=== PATIENT | female | born 1985 | race Caucasian/White ===

== ENCOUNTER 2019-10-14 07:46 | Day surgery (SDC) | payer OTHER ==
--- NOTE | 2019-10-13 11:29 | PCM.PREANE ---
Preanesthetic Assessment - Anesthesia/Transfusion/Family Hx Anesthesia History: No Prior Anesthesia Family History of Anesthesia Reaction: No Transfusion History: No Prior Transfusion(s) Intubation History: Unknown - Review of Systems Pulmonary: No Symptoms (Smoker: less than 1 ppd times 15 yrs) Other: Reports: Depression - Physical Assessment NPO Status Date: 10/13/19 Vital Signs: HR: Resp: BP: Sat: Temp: Height: 1.55 m ASA Class: 2 Mental Status: Alert & Oriented x3 - Lab Values: Laboratory Last Values WBC 8.90 K/mm3 (3.98-10.04) 10/08/19 10:12 RBC 4.97 M/mm3 (3.98-5.22) 10/08/19 10:12 Hgb 13.0 gm/dl (11.2-15.7) 10/08/19 10:12 Hct 40.4 % (34.1-44.9) 10/08/19 10:12 MCV 81.3 fl (79.4-94.8) D 10/08/19 10:12 MCH 26.2 pg (25.6-32.2) 10/08/19 10:12 MCHC 32.2 g/dl (32.2-35.5) 10/08/19 10:12 RDW Std Deviation 55.7 fL (36.4-46.3) H 10/08/19 10:12 Plt Count 228 K/mm3 (182-369) 10/08/19 10:12 MPV 11.7 fl (9.4-12.3) 10/08/19 10:12 Neut % (Auto) 62.4 % (34.0-71.1) 10/08/19 10:12 Lymph % (Auto) 24.6 % (19.3-51.7) 10/08/19 10:12 [place] % (Auto) 8.9 % (4.7-12.5) 10/08/19 10:12 Eos % (Auto) 3.5 (0.7-5.8) 10/08/19 10:12 Baso % (Auto) 0.4 % (0.1-1.2) 10/08/19 10:12 Neut # (Auto) 5.55 K/mm3 (1.56-6.13) 10/08/19 10:12 Lymph # (Auto) 2.19 K/mm3 (1.18-3.74) 10/08/19 10:12 [place] # (Auto) 0.79 K/mm3 (0.24-0.36) H 10/08/19 10:12 Eos # (Auto) 0.31 K/mm3 (0.04-0.36) 10/08/19 10:12 Baso # (Auto) 0.04 K/mm3 (0.01-0.08) 10/08/19 10:12 Creatinine 0.8 mg/dL (0.55-1.02) 10/08/19 10:12 Est Cr Clr Drug Dosing TNP 10/08/19 10:12 Estimated GFR (MDRD) > 60 mL/min (>60) 10/08/19 10:12 Urine Color Yellow (Yellow) 10/08/19 10:12 Urine Appearance Clear (Clear) 10/08/19 10:12 Urine pH 7.0 (5.0-8.0) 10/08/19 10:12 Ur Specific [place] 1.025 (1.005-1.030) 10/08/19 10:12 Urine Protein Negative (Negative) 10/08/19 10:12 Urine Glucose (UA) Negative (Negative) 10/08/19 10:12 Urine Ketones Negative (Negative) 10/08/19 10:12 Urine Occult Blood Negative (Negative) 10/08/19 10:12 Urine Nitrite Negative (Negative) 10/08/19 10:12 Urine Bilirubin Negative (Negative) 10/08/19 10:12 Urine Urobilinogen 0.2 (0.2-1.0) 10/08/19 10:12 Ur Leukocyte Esterase Negative (Negative) 10/08/19 10:12 Above labs reviewed and noted and within acceptable ranges to proceed with scheduled procedure. - Allergies Allergies/Adverse Reactions: Allergies Allergy/AdvReac Type Severity Reaction Status Date / Time No Known Allergies Allergy Verified 09/01/15 23:55 - Anesthesia Plan Pre-Op Medication Ordered: None - Acknowledgements Anesthesia Type Planned: General Anesthesia Pt an Appropriate Candidate for the Planned Anesthesia: Yes Alternatives and Risks of Anesthesia Discussed w Pt/Guardian: Yes Pt/Guardian Understands and Agrees with Anesthesia Plan: Yes PreAnesthesia Questionnaire - Past Health History Medical/Surgical History: Denies Medical/Surgical History - HOME MEDS Home Medications: Home Meds Ibuprofen [Motrin] 600 mg PO Q6H PRN #30 tab 09/02/15 [Rx] Methocarbamol [Robaxin-750] 750 mg PO BID #10 tablet 09/02/15 [Rx] - CURRENT (IN HOUSE) MEDS Current Meds: Current Medications Lactated Ringer's (Ringers, Lactated) 1,000 mls @ 125 mls/hr IV ASDIRECTED PRESTON Stop: 10/14/19 23:00 Lidocaine/Sodium Bicarbonate (Buffered Lidocaine 1% In Ns 8.4%) 0.25 ml IDERM ONETIME PRN PRN Reason: Prior to IV Start Stop: 10/14/19 23:00 Sodium Chloride (Saline Flush) 10 ml FLUSH ASDIRECTED PRN PRN Reason: Keep Vein Open Stop: 10/14/19 23:00
[~2019-10-14 07:46] MED LIST: Lactated Ringers 1,000 ML IV SCH; Lidocaine 1%/Sod Bicarbonate in NS 8.4% 1 ML Syringe IDERM PRN; Sodium Chloride 0.9% 10 ML Syringe FLUSH PRN
[2019-10-14] MEDS ORDERED: Ondansetron 4 MG/2 ML SDV ONE (08:40)
[2019-10-14] MEDS ORDERED: ceFAZolin 1 GM Vial ONE (08:40)
[2019-10-14] MEDS ORDERED: Lidocaine 1% 4 ML ONE (08:40)
[2019-10-14] MEDS ORDERED: Lactated Ringers 1,000 ML ONE (08:40)
[2019-10-14] MEDS ORDERED: Rocuronium 50 MG/5 ML Vial ONE (08:40)
[2019-10-14] MEDS ORDERED: Ketorolac 15 MG/ML SDV ONE (08:41)
[2019-10-14] MEDS ORDERED: Propofol 200 MG/20 ML SDV ONE (08:41)
[2019-10-14] MEDS ORDERED: Dexamethasone 4 MG/ML 5 ML MDV ONE (08:41)
[2019-10-14] MEDS ORDERED: fentaNYL 250 MCG/5 ML SDV ONE (08:41)
[2019-10-14] MEDS ORDERED: Midazolam 1 MG/ML 2 ML SDV ONE (08:41)
[2019-10-14] MEDS ORDERED: Bupivacaine 0.5% 10 ML SDV ONE (08:44)
--- NOTE | 2019-10-14 08:44 | PCM.PREANE ---
Preanesthetic Assessment - Procedure Proposed Procedure: LAVH With BS - Anesthesia/Transfusion/Family Hx Anesthesia History: No Prior Anesthesia Family History of Anesthesia Reaction: No Transfusion History: No Prior Transfusion(s) Intubation History: Unknown - Review of Systems General: No Symptoms Pulmonary: No Symptoms Cardiovascular: No Symptoms Gastrointestinal: Nausea Neurological: No Symptoms Other: Reports: Depression, Anxiety - Physical Assessment NPO Status Date: 10/13/19 NPO Status Time: 00:00 Height: 1.55 m Weight: 83.4 kg ASA Class: 2 Mental Status: Alert & Oriented x3 Airway Class: Mallampati = 1 Dentition: Reports: Normal Dentition Thyro-Mental Finger Breadths: 3 Mouth Opening Finger Breadths: 3 ROM/Head Extension: Full Lungs: Clear to Auscultation, Normal Respiratory Effort Cardiovascular: Regular Rate, Regular Rhythm - Lab Values: Laboratory Last Values WBC 8.90 K/mm3 (3.98-10.04) 10/08/19 10:12 RBC 4.97 M/mm3 (3.98-5.22) 10/08/19 10:12 Hgb 13.0 gm/dl (11.2-15.7) 10/08/19 10:12 Hct 40.4 % (34.1-44.9) 10/08/19 10:12 MCV 81.3 fl (79.4-94.8) D 10/08/19 10:12 MCH 26.2 pg (25.6-32.2) 10/08/19 10:12 MCHC 32.2 g/dl (32.2-35.5) 10/08/19 10:12 RDW Std Deviation 55.7 fL (36.4-46.3) H 10/08/19 10:12 Plt Count 228 K/mm3 (182-369) 10/08/19 10:12 MPV 11.7 fl (9.4-12.3) 10/08/19 10:12 Neut % (Auto) 62.4 % (34.0-71.1) 10/08/19 10:12 Lymph % (Auto) 24.6 % (19.3-51.7) 10/08/19 10:12 [place] % (Auto) 8.9 % (4.7-12.5) 10/08/19 10:12 Eos % (Auto) 3.5 (0.7-5.8) 10/08/19 10:12 Baso % (Auto) 0.4 % (0.1-1.2) 10/08/19 10:12 Neut # (Auto) 5.55 K/mm3 (1.56-6.13) 10/08/19 10:12 Lymph # (Auto) 2.19 K/mm3 (1.18-3.74) 10/08/19 10:12 [place] # (Auto) 0.79 K/mm3 (0.24-0.36) H 10/08/19 10:12 Eos # (Auto) 0.31 K/mm3 (0.04-0.36) 10/08/19 10:12 Baso # (Auto) 0.04 K/mm3 (0.01-0.08) 10/08/19 10:12 Creatinine 0.8 mg/dL (0.55-1.02) 10/08/19 10:12 Est Cr Clr Drug Dosing TNP 10/08/19 10:12 Estimated GFR (MDRD) > 60 mL/min (>60) 10/08/19 10:12 Urine Color Yellow (Yellow) 10/08/19 10:12 Urine Appearance Clear (Clear) 10/08/19 10:12 Urine pH 7.0 (5.0-8.0) 10/08/19 10:12 Ur Specific [place] 1.025 (1.005-1.030) 10/08/19 10:12 Urine Protein Negative (Negative) 10/08/19 10:12 Urine Glucose (UA) Negative (Negative) 10/08/19 10:12 Urine Ketones Negative (Negative) 10/08/19 10:12 Urine Occult Blood Negative (Negative) 10/08/19 10:12 Urine Nitrite Negative (Negative) 10/08/19 10:12 Urine Bilirubin Negative (Negative) 10/08/19 10:12 Urine Urobilinogen 0.2 (0.2-1.0) 10/08/19 10:12 Ur Leukocyte Esterase Negative (Negative) 10/08/19 10:12 Urine HCG, Qual Negative (NEGATIVE) 10/14/19 08:06 - Allergies Allergies/Adverse Reactions: Allergies Allergy/AdvReac Type Severity Reaction Status Date / Time No Known Allergies Allergy Verified 10/13/19 13:43 - Blood Blood Available: Yes Product(s) Available: PRBC PreAnesthesia Questionnaire - Past Health History Medical/Surgical History: Denies Medical/Surgical History HEENT History: Reports: None Cardiovascular History: Reports: None Respiratory History: Reports: None Gastrointestinal History: Reports: None Genitourinary History: Reports: None [employer] History: Reports: Musculoskeletal History: Reports: Back Pain, Chronic, Neck Pain, Chronic Neurological History: Reports: None Psychiatric History: Reports: Anxiety, Depression Endocrine/Metabolic History: Reports: None Hematologic History: Reports: Anemia Immunologic History: Reports: None Oncologic (Cancer) History: Reports: None Dermatologic History: Reports: None - Past Surgical History Head Surgeries/Procedures: Reports: None HEENT Surgical History: Reports: Eye Surgery Cardiovascular Surgical History: Reports: None Respiratory Surgical History: Reports: None GI Surgical History: Reports: None Female Surgical History: Reports: None Male Surgical History: Reports: None Endocrine Surgical History: Reports: None Neurological Surgical History: Reports: None Musculoskeletal Surgical History: Reports: None Oncologic Surgical History: Reports: None Dermatological Surgical History: Reports: None - SUBSTANCE USE Smoking Status *Q: Current Every Day Smoker Recreational Drug Use History: No - HOME MEDS Home Medications: Home Meds Iron,Carbonyl/Ascorbic Acid [Vitron-C Tablet] 1 tab PO DAILY 10/13/19 [History] - CURRENT (IN HOUSE) MEDS Current Meds: Current Medications Lactated Ringer's (Ringers, Lactated) 1,000 mls @ 125 mls/hr IV ASDIRECTED PRESTON Stop: 10/14/19 23:00 Lidocaine/Sodium Bicarbonate (Buffered Lidocaine 1% In Ns 8.4%) 0.25 ml IDERM ONETIME PRN PRN Reason: Prior to IV Start Stop: 10/14/19 23:00 Sodium Chloride (Saline Flush) 10 ml FLUSH ASDIRECTED PRN PRN Reason: Keep Vein Open Stop: 10/14/19 23:00 Discontinued Medications Lidocaine/Epinephrine (Xylocaine 1% With Epinephrine 1:100,000) Confirm Administered Dose 20 ml .ROUTE .STK-MED ONE Stop: 10/14/19 08:32 Sodium Chloride (Normal Saline) Confirm Administered Dose 50 ml .ROUTE .STK-MED ONE Stop: 10/14/19 08:32
[2019-10-14] MEDS ORDERED: LORazepam 2 MG/ML SDV IVPUSH ONE (08:46)
[2019-10-14] MEDS: Sodium Chloride 0.9% 50 ML SDV ONE ×2 (09:45→09:56)
[2019-10-14] MEDS: Lidocaine 1% with EPINEPHrine 1:100,000 20 ML MDV ONE ×2 (09:45→09:55)
[2019-10-14] MEDS ORDERED: fentaNYL 100 MCG/2 ML SDV IVPUSH PRN (10:03)
[2019-10-14] MEDS ORDERED: Ondansetron 4 MG/2 ML SDV IVPUSH PRN ×2 (10:03→10:40)
[2019-10-14] MEDS ORDERED: HYDROmorphone 0.5 MG/0.5 ML Syringe IVPUSH PRN (10:03)
[2019-10-14] MEDS ORDERED: Neostigmine Methylsulfate 1 MG/ML 5 ML Syringe ONE (10:09)
[2019-10-14] MEDS ORDERED: HYDROmorphone 0.5 MG/0.5 ML Syringe ONE (10:36)
[2019-10-14] MEDS ORDERED: Acetaminophen/oxyCODONE 325-5 MG Tab PO PRN (10:40)
[2019-10-14] MEDS ORDERED: Ketorolac 30 MG/ML SDV IVPUSH SCH (10:45)
--- NOTE | 2019-10-14 10:46 | PCM.OPNOTE ---
- General Post-Op/Procedure Note Date of Surgery/Procedure: 10/14/19 Operative Procedure(s): Total vaginal hysterectomy with bilateral salpingectomy Findings: Uterus is upper limits normal size, possibly mildly mildly enlarged, ovaries bilaterally were within normal limits. Fallopian tubes appeared normal bilaterally. Pre Op Diagnosis: 1. Menorrhagia with irregular cycles. 2. Dysmenorrhea Post-Op Diagnosis: Same Anesthesia Technique: General ET Tube Other Anesthesia Type: Lidocaine quarter percent with [id number] mL local Primary Surgeon: Terell Bishop Secondary Surgeon: Loco Schultz Anesthesia Provider: Tianna Hickey Stripping Cutter And Winder: Erika Leyva Reason Stripping Cutter And Winder Was Necessary: Assistance, retraction, patient safety, quality of care Pathology: Uterus, bilateral fallopian tubes Fluid Replacement, Intraop: 1,500 EBL in mLs: 200 Complications: None Condition: Good Free Text/Narrative:: Surgery duration: 50 minutes Procedure: The patient was placed in supine position on the operating table. General endotracheal anesthesia was accomplished. After positioning, and adequate prep and drape, the procedure was then performed. Sterile speculum was placed in the vagina and cervix was visualized. Cervix was injected with lidocaine quarter percent with epinephrine-20 mL used. A full circumference incision was made in the cervical epithelium. The bladder was pushed well back off cervix. Posterior cul-de-sac was then entered sharply without problems. Left uterosacral was crossclamped with a Enseal vessel closure system. The left uterosacral and then the right uterosacral ligament pedicles were developed using the Enseal system. The anterior cul-de-sac was then entered without problems and the uterine vasculature, cardinal ligament and broad ligament then developed using Enseal vessel closure system. The uterus was inverted at this time and upper broad ligament fallopian tube pedicles were crossclamped with Cristy clamps. Specimen was totally removed. Both these pedicles were then secured with a Cristy stitch of #1 Vicryl. Left and right fallopian tube was normal in appearance.. Using 1-0 Vicryl suture the pedicles of each of the fallopian tube were secured and sent with the uterinespecimen. The patient was found to be hemostatically intact at this time. Vaginal cuff was sutured for hemostatic reasons with a running locked suture of 0 Monocryl from the 2 o'clock position to the 10 o'clock position posteriorly. Vaginal cuff was then closed from right to left side with a running locked suture of 0 Monocryl. Patient was returned to supine position and awakened from general endotracheal anesthesia. She tolerated the procedure and left the operating room in satisfactory condition.
--- NOTE | 2019-10-14 10:58 | PCM.POSTAN ---
POST ANESTHESIA ASSESSMENT - MENTAL STATUS Mental Status: Alert, Oriented - VITAL SIGNS Vital Signs: Last Vital Signs Temp 36.8 C 10/14/19 10:50 Pulse 73 10/14/19 10:50 Resp 16 10/14/19 10:50 BP 113/68 10/14/19 10:50 Pulse Ox 97 10/14/19 10:50 - RESPIRATORY Respiratory Status: Respiratory Rate WNL, Airway Patent, O2 Saturation Stable, Supplemental Oxygen - CARDIOVASCULAR CV Status: Pulse Rate WNL, Blood Pressure Stable - GASTROINTESTINAL GI Status: No Symptoms - PAIN Pain Score: 0 - POST OP HYDRATION Hydration Status: Adequate & Stable
[2019-10-14 12:16] VITALS: BP 115/83; PULSE 67
--- NOTE | 2019-10-14 14:18 | PCM48HPAN ---
Post Anesthesia Note - EVALUATION WITHIN 48HRS OF ANESTHETIC Vital Signs in Normal Range: Yes Patient Participated in Evaluation: Yes Respiratory Function Stable: Yes Airway Patent: Yes Cardiovascular Function Stable: Yes Hydration Status Stable: Yes Pain Control Satisfactory: Yes Nausea and Vomiting Control Satisfactory: Yes Mental Status Recovered: Yes Vital Signs: Last Vital Signs Temp 36.8 C 10/14/19 12:00 Pulse 67 10/14/19 12:00 Resp 16 10/14/19 12:00 BP 115/83 10/14/19 12:00 Pulse Ox 96 10/14/19 12:00
== END 2019-10-14 12:14 | disposition home or self-care (01) ==
LOC: JD.SDS 07:46
PROVIDERS: ATTEND Obstetrics & Gynecology
DX: N80.0 Endometriosis of uterus (principal); N87.9 Dysplasia of cervix uteri, unspecified; N72 Inflammatory disease of cervix uteri; D64.9 Anemia, unspecified; F17.210 Nicotine dependence, cigarettes, uncomplicated
CPT/HCPCS: 36415; 58262; 81003; 81025; 82565; 85025; 86850; 86900; 86901; A9270; J0690; J1100; J1170; J1885; J2001; J2060; J2250; J2405; J2704; J2710; J3010; J3490; J7120; 00944

== ENCOUNTER 2022-07-16 09:17 | Emergency (ER) | payer OTHER, SELFPAY ==
[2022-07-16 09:53] VITALS: PULSE 93
[2022-07-16] MEDS ORDERED: Ketorolac 30 MG/ML SDV IVPUSH ONE (09:59)
[2022-07-16] MEDS ORDERED: Sodium Chloride 0.9% 1,000 ML IV ONE (09:59)
[2022-07-16] MEDS ORDERED: fentaNYL 100 MCG/2 ML SDV IVPUSH PRN (10:00)
[2022-07-16] MEDS ORDERED: Sodium Chloride 0.9% 1,000 ML ONE (10:21)
[2022-07-16] MEDS ORDERED: Albuterol/Ipratropium 3.0-0.5 MG/3 ML Neb Soln NEB ONE (11:55)
[2022-07-16 13:31] VITALS: BP 114/76
== END 2022-07-16 13:13 | disposition home or self-care (01) ==
LOC: JD.ED 09:17
DX: K20.90 Esophagitis, unspecified without bleeding (principal); F17.210 Nicotine dependence, cigarettes, uncomplicated; Z79.899 Other long term (current) drug therapy; Z90.710 Acquired absence of both cervix and uterus
CPT/HCPCS: 36415; 71045; 80053; 84484; 85007; 85027; 85379; 96361; 96374; 96375; 99285; J1885; J3010; J7030; 93010; 99284